=== PATIENT | male | born 1960 | race African-American/Black ===

== ENCOUNTER 2017-01-22 16:30 | Emergency (ER) | payer MEDICARE, MEDICAID ==
[2017-01-22] MEDS ORDERED: Ibuprofen TAB* 600 MG PO ONE (17:16)
--- NOTE | 2017-01-22 17:21 | ED ---
Lower Extremity - HPI Summary HPI Summary: Patient presents with left small toe pain after striking it against a piece of furniture 3 weeks ago. He thought he just bruised it but his pain has continued and he worries he broke it. Wearing shoes is painful and he says to get his foot in his boot leaves him "needing to be carried out by pall bearers". He has not taken any medication for his pain. No N/T but it is swollen. - History of Current Complaint Chief Complaint: EDExtremityLower Stated Complaint: FOOT/TOE PAIN Time Seen by Provider: 01/22/17 16:49 Hx Obtained From: Patient Mechanism Of Injury: Blunt Trauma Onset of Pain: Immediate Onset/Duration: Still Present Severity Initially: Moderate Severity Currently: Severe Pain Intensity: 10 Timing: Constant Location: Is Discrete @ - left small toe Character Of Pain: Sharp, Aching, Stiffness Associated Signs And Symptoms: Positive: Swelling Aggravating Factor(s): Movement Alleviating Factor(s): Nothing Able to Bear Weight: Yes - Allergies/Home Medications Allergies/Adverse Reactions: Allergies Allergy/AdvReac Type Severity Reaction Status Date / Time No Known Allergies Allergy Verified 01/22/17 16:45 PMH/Surg Hx/FS Hx/Imm Hx Endocrine/Hematology History: Denies: Hx Sickle Cell Disease Cardiovascular History: Reports: Hx Hypertension - WELL CONTROLLED Denies: Hx Pacemaker/ICD, Other Cardiovascular Problems/Disorders Respiratory History: Denies: Other Respiratory Problems/Disorders GI History: Denies: Other GI Disorders History: Denies: Other Problems/Disorders Musculoskeletal History: Reports: Other Musculoskeletal History - RIGHT FOOT MORTONS NEUROMA Sensory History: Denies: Hx Contacts or Glasses, Hx Hearing Aid Opthamlomology History: Denies: Hx Contacts or Glasses Neurological History: Denies: Other Neuro Impairments/Disorders Psychiatric History: Denies: Hx Panic Disorder - Surgical History Surgery Procedure, Year, and Place: 1988 EXC OF CYST ON CHEST. RIGHT FOOT BONE EXC 2011 [facility] Hx Anesthesia Reactions: No Infectious Disease History: No Infectious Disease History: Denies: Traveled Outside the [place] in Last 30 Days - Family History Known Family History: Positive: Cardiac Disease, Hypertension - Social History Occupation: Employed Full-time Lives: With Family Alcohol Use: Daily Alcohol Amount: 3-4 BEERS/DAY Substance Use Type: Reports: None Smoking Status (MU): Heavy Every Day Tobacco Smoker Type: Cigarettes Amount Used/How Often: 1/2 PPD Length of Time of Smoking/Using Tobacco: 33 YEARS Have You Smoked in the Last Year: Yes Review of Systems Positive: Decreased ROM - left small toe, Edema - left small toe Negative: Weakness, Paresthesia, Numbness All Other Systems Reviewed And Are Negative: Yes Physical Exam Triage Information Reviewed: Yes Vital Signs On Initial Exam: Initial Vitals Temp Pulse Resp BP Pulse Ox 98.1 F 83 16 137/85 100 01/22/17 16:45 01/22/17 16:45 01/22/17 16:45 01/22/17 16:45 01/22/17 16:45 Vital Signs Reviewed: Yes Appearance: Positive: Well-Appearing, Pain Distress, Obese Skin: Positive: Warm, Skin Color Reflects Adequate Perfusion, Dry, Soft Head/Face: Positive: Normal Head/Face Inspection Eyes: Positive: EOMI, TIMOTHY, Conjunctiva Clear ENT: Positive: Hearing grossly normal Respiratory/Lung Sounds: Positive: Breath Sounds Present Cardiovascular: Positive: RRR Musculoskeletal: Positive: Limited @ - pain with any movement, Pain @ - TTP left small toe, Edema Left - small toe Neurological: Positive: Sensory/Motor Intact, Alert, Oriented to Person Place, Time, NV Bundle Intact Distally, Abnormal Gait Psychiatric: Positive: Affect/Mood Appropriate AVPU Assessment: Alert Diagnostics - Vital Signs Vital Signs Temp Pulse Resp BP Pulse Ox 01/22/17 16:45 98.1 F 83 16 137/85 100 - Laboratory Lab Statement: Any lab studies that have been ordered have been reviewed, and results considered in the medical decision making process. Lower Extremity Course/Dx - Diagnoses Differential Diagnosis/HQI/PQRI: Positive: Bursitis, Cellulitis, Contusion, Fracture (Closed), Gout, Infection, Sprain, Strain Provider Diagnoses: Contusion of toe, left Discharge - Discharge Plan Condition: Stable Disposition: HOME Patient Education Materials: Foot Contusion (ED) Referrals: Toan Salmreon MD [Primary Care Provider] - Additional Instructions: Please wear the shoe provided until your pain improves. Use ibuprofen 400mg three times daily with meals for the next 3-5 days to decrease swelling and pain. Elevate your foot above your heart and apply ice as needed to reduce swelling as well. Follow-up with your credit assistant or regular doctor in 3-5 days for re-evaluation.
--- NOTE | 2017-01-22 18:20 | RAD ---
INDICATION: Pain and swelling to the left small toe after traumatic injury. TECHNIQUE: 3 views of the left small toe were obtained. FINDINGS: The visualized bones are normal alignment. Joint spaces appear maintained. No fracture is seen. IMPRESSION: NO EVIDENCE FOR FRACTURE. IF THE PATIENT'S SYMPTOMS PERSIST RECOMMEND FOLLOW-UP IMAGING.
[2017-01-22 18:34] VITALS: BP 112/75
== END 2017-01-22 18:31 | disposition home or self-care (01) ==
LOC: ED 16:30
DX: M79.675 Pain in left toe(s) (principal); F17.210 Nicotine dependence, cigarettes, uncomplicated; S90.122A Contusion of left lesser toe(s) without damage to nail, initial encounter; W22.8XXA Striking against or struck by other objects, initial encounter; Y93.89 Activity, other specified; Y92.9 Unspecified place or not applicable
CPT/HCPCS: 99282; A9270-GY

== ENCOUNTER 2017-08-21 06:08 | Day surgery (SDC) | payer MEDICARE ==
[~2017-08-21 06:08] MED LIST: Buffered Lidocaine 0.9% SYRIN* 5 ML/SYR SYRINGE INTRADERM ONE; Sodium Citrate/Citric Acid* 15 ML UDC PO ONE
[2017-08-21] MEDS ORDERED: ceFAZolin 2 GM PREMIX (*) 2 GM/50 ML BAG IVPB ONE (06:17)
[2017-08-21] MEDS ORDERED: Sodium Citrate/Citric Acid* 15 ML UDC ONE (06:17)
[2017-08-21 07:00] LABS: EGFR African American 95.1 (>60); EGFR Non-African American 73.9 (>60)
[2017-08-21] MEDS ORDERED: Bupivacaine 0.5% SDV PF* 30 ML VIAL ONE (07:10)
[2017-08-21] MEDS ORDERED: Midazolam* 1 MG/ML 2 ML VIAL (2 MG) ONE (07:32)
[2017-08-21] MEDS ORDERED: fentaNYL* 50 MCG/ML 2 ML VIAL (100 MCG VIAL) ONE (07:32)
[2017-08-21] MEDS ORDERED: Lidocaine 2% PF * 5 ML VIAL ONE (07:40)
[2017-08-21] MEDS ORDERED: Propofol* 10 MG/ML 20 ML BTL IV PUSH ONE (07:40)
[2017-08-21] MEDS ORDERED: Lidocaine 2% PF* 10 ML AMP ONE (07:42)
[2017-08-21 08:23] VITALS: BP 128/95
--- NOTE | 2017-08-22 11:02 | OP ---
OPERATIVE REPORT: DATE OF OPERATION: 08/21/17 - SDS DATE OF : 56 SURGEON: Miguel A uGzman MD RESEARCH AND DEVELOPMENT CHEMIST: Veda Denise PA-C ANESTHESIOLOGIST: Dale Stoddard DO ANESTHESIA: MAC. PRE-OP DIAGNOSES: Chronic onychomycosis and bony deformity, left 5th toe. POST-OP DIAGNOSES: Chronic onychomycosis and bony deformity, left 5th toe. OPERATIVE PROCEDURE: Disarticulation, left 5th toe, IP joint. DESCRIPTION OF PROCEDURE: The patient was taken to the operating room where local anesthetic was instilled. We made a transverse elliptical incision at the IP joint of his left 5th toe. The toe was disarticulated at the IP joint and then we irrigated after dropping the tourniquet. Hemostasis was obtained. We closed the flaps with interrupted nylon sutures and a compression dressing applied. [id number]/CPS #: [id number] MTDD
== END 2017-08-21 08:49 | disposition home or self-care (01) ==
LOC: OR 06:08
PROVIDERS: ATTEND Orthopaedic Surgery
DX: B35.1 Tinea unguium (principal); M20.5X2 Other deformities of toe(s) (acquired), left foot; L84 Corns and callosities; F17.210 Nicotine dependence, cigarettes, uncomplicated; I10 Essential (primary) hypertension; Z68.31 Body mass index [BMI] 31.0-31.9, adult
CPT/HCPCS: 36415; 82565; 88302; A9270-GY; J0690; J2001; J2250; J2704; J3010